=== PATIENT | female | born 1940 | race African-American/Black ===

== ENCOUNTER → 2018-01-01 | Outpatient (CLI) | payer OTHER | END | disposition home or self-care (01) | LOC: KCIC MAMMO 09:03 | DX: Z12.31 Encounter for screening mammogram for malignant neoplasm of breast (principal); Z13.820 Encounter for screening for osteoporosis; M85.88 Other specified disorders of bone density and structure, other site; Z78.0 Asymptomatic menopausal state | CPT/HCPCS: 77067; 77080 ==

== ENCOUNTER → 2019-01-08 | Outpatient (CLI) | payer OTHER ==
--- NOTE | 2019-01-10 09:31 | RAD ---
DATE: January 08, 2019 EXAM: DIGITAL SCREEN BILAT W/CAD HISTORY: Screening study. COMPARISON: January 01, 2018 This study was interpreted with the benefit of Computerized Aided Detection (CAD). FINDINGS: Breast Density: FATTY The breast parenchyma is primarily fatty replaced. Breast parenchyma level density A.. There are no dominant suspicious masses, suspicious microcalcifications or evidence of architectural distortion. Intramammary lymph node of the posterior lateral aspect of the left breast is seen. Small lymph node is seen overlying the right pectoralis muscle in the MLO projection. IMPRESSION: No mammographic indicators for malignancy. BI-RADS CATEGORY: 2 BENIGN FINDING RECOMMENDED FOLLOW-UP: 12M 12 MONTH FOLLOW-UP PQRS compliance statement: Patient information was entered into a reminder system with a target due date January 10, 2020 for the next mammogram. Mammography is a sensitive method for finding small breast cancers, but it does not detect them all and is not a substitute for careful clinical examination. A negative mammogram does not negate a clinically suspicious finding and should not result in delay in biopsying a clinically suspicious abnormality. "Our facility is accredited by the [employer] Mammography Program." The patient's breast density may affect the ability of mammography to detect breast cancer. There are 4 categories of breast density, A, B, C and D. Breast density A means that most of the breast tissue is replaced with adipose tissue and therefore is not dense. Breast density B means that the breast tissue is mildly dense and scattered. Breast density C means that the breast tissue is heterogeneously dense. Breast density D means that the breast tissue is very dense. Breast densities especially C and D may decrease the sensitivity of mammography to detect breast cancer. Therefore, the patient may benefit from 3-D breast mammography (3D breast tomography) as a part of their screening mammogram. Insurance may or may not pay for this additional imaging. The patient's breast density based on today's mammogram is category A.
== END | disposition home or self-care (01) ==
LOC: MAMMO 09:08
PROVIDERS: ATTEND Physician Assistant Surgical
DX: R92.8 Other abnormal and inconclusive findings on diagnostic imaging of breast (principal)
CPT/HCPCS: 77067

== ENCOUNTER → 2020-09-26 | Outpatient (CLI) | payer OTHER ==
[~2020-09-26] MED LIST: REGADENOSON 0.4 MG/5 ML DISP.SYRIN. IV ONE
--- NOTE | 2020-09-26 11:01 | CARD ---
MR#: [id number] Date of Study: 09/26/2020 Ordering Physician: MIKEY GASPAR, Referring Physician: MIKEY GASPAR, Tech: Chayito Gamajaclyn APPROVED REPORT EXAM: Two-dimensional and M-mode echocardiogram with Doppler and color Doppler. Other Information Quality : AverageHR: 55bpm INDICATION COPD abnormal EKG RISK FACTORS Hypertension Hyperlipidemia 2D DIMENSIONS RVDd3.7 (2.9-3.5cm)Left Atrium(2D)3.1 (1.6-4.0cm) IVSd1.2 (0.7-1.1cm)Aortic Root(2D)3.0 (2.0-3.7cm) LVDd4.7 (3.9-5.9cm)LVOT Diameter2.1 (1.8-2.4cm) PWd0.7 (0.7-1.1cm)LVDs2.9 (2.5-4.0cm) FS (%) 39.5 %SV72.7 ml LVEF(%)70.0 (>50%) Aortic Valve AoV Peak Delgado.133.4cm/sAoV VTI31.1cm AO Peak GR.7.1mmHgLVOT Peak Delgado.117.9cm/s LVOT VTI 30.87cmAO Mean GR.3mmHg JAY JAY (VMAX)2.71fz7IHK (VTI)3.43cm2 AI P 1/2 Jpvk516tr Mitral Valve MV E Kmivvedb66.4cm/sMV DECEL NAIR809zl MV A Knmlxrxb46.5cm/sMV ILA087wf E/A Ratio0.8MVA (PHT)1.93cm2 TDI E/Lateral E'9.5E/Medial E'11.2 Pulmonary Valve PV Peak Bkychqpm400.2cm/sPV Peak Grad.5mmHg Tricuspid Valve TR P. Lotqjtdr409sg/sRAP CNOSSZEF5gbPh TR Peak Gr.51uoJdRTSQ46nuXk Pulmonary Vein S1 Jdzrdrxi78.8cm/sD2 Qzfktnlw16.0cm/s PVa ztxonrar864dxmx LEFT VENTRICLE The left ventricle is normal size. There is borderline to mild concentric left ventricular hypertroph y. The left ventricular systolic function is normal and the ejection fraction is within normal range. The Ejection Fraction is 60-65%. There is normal LV segmental wall motion. Transmitral Doppler flow pattern is Grade I-abnormal relaxation pattern. RIGHT VENTRICLE The right ventricle is normal size. There is normal right ventricular wall thickness. The right ventr icular systolic function is normal. ATRIA The left atrium size is normal. The right atrium size is normal. The interatrial septum is intact wit h no evidence for an atrial septal defect or patent foramen ovale as noted on 2-D or Doppler imaging. AORTIC VALVE The aortic valve is normal in structure and function. Doppler and Color Flow revealed trace to mild a ortic regurgitation. Calculated aortic valve area is 2.96 cm2 with maximum pressure gradient of 8 mmH g and mean pressure gradient of 4 mmHg. There is no significant aortic valvular stenosis. MITRAL VALVE The mitral valve is normal in structure and function. There is no evidence of mitral valve prolapse. There is no mitral valve stenosis. Doppler and Color-flow revealed trace to mild mitral regurgitation . TRICUSPID VALVE The tricuspid valve is normal in structure and function. Doppler and Color Flow revealed trace tricus pid regurgitation with an estimated PAP of 31 mmHg. There is no tricuspid valve stenosis. PULMONIC VALVE The pulmonic valve is not well visualized. Doppler and Color Flow revealed trace pulmonic valvular re gurgitation. There is no pulmonic valvular stenosis. GREAT VESSELS The aortic root is normal in size. The ascending aorta is normal in size. The IVC is normal in size a nd collapses >50% with inspiration. PERICARDIAL EFFUSION There is no evidence of significant pericardial effusion. Critical Notification Critical Value: No <Conclusion> The left ventricular systolic function is normal and the ejection fraction is within normal range. Th e Ejection Fraction is 60-65%. There is normal LV segmental wall motion. Doppler and Color Flow revealed trace to mild aortic regurgitation. Signed by : Grady Silva, Electronically Approved : 09/26/2020 11:00:46
--- NOTE | 2020-09-27 08:02 | RAD ---
MR#: [id number] Date of Study: 09/26/2020 Ordering Physician: MIKEY GASPAR Referring Physician: YVONNE VILLEGAS Tech: RT Jacky (R) (N) APPROVED REPORT Test Type: Pharmacological Stress Nurse/Tech: Henok Gonsalves RN Test Indications: Atypical Chest Pain Cardiac History: HTN, See EMR. Medications: See EMR. Medical History: CA, COPD, See EMR. Resting ECG: SR Resting Heart Rate: 57 bpm Resting Blood Pressure: 199/86mmHg Pretest Chest Pain: No chest pain Nurse/Tech Notes Lungs crackly throughout, and heart tones regular. Consent: The procedure was explained to the patient in lay terms. Informed consent was witnessed. Saúl eout was entered into [employer]. History and Stress Test performed by JIGNESH Cevallos Pharm. Details Pharmacologic stress testing was performed using 0.4mg per 5ml of regadenoson given intravenously ove r 7-10 seconds. Stress Symptoms No chest pain or symptoms. POST EXERCISE Reason for Termination: Infusion complete Max HR: 87 bpm Max Blood Pressure: 139/72mmHg Blood Pressure response to exercise: Normal blood pressure response during stress. Heart Rate response to exercise: WNL Chest Pain: No. Arrhythmia: No. ST Change: No. INTERPRETATION Stress EKG Conclusion: Baseline EKG showed sinus rhythm. No ischemic changes at peak stress. No arr hythmias. Imaging Protocol IMAGE PROTOCOL: Rest Tc-99m/stress Tc-99m 1 day Rest: Stress: Viability: Radiopharm.Tc99m HhjsblnswGz12c Sestamibi Ghaw41fDi 33mCi Duration 15min. 15min. Img Date 09/26/2020 09/26/2020 Inj-Img Bswd09uoe. 60min. Rest Admin Site:IV - Left AntecubitalAdministrator:RT Jacky (R)(N) Stress Admin Site: IV - Left AntecubitalAdministrator: JIGNESH Cevallos STRESS DATA End Diast. Vol.60.0mlAv. Heart Rate81.0bpm End Syst. Vol.3.0mlCO Index BSA0.0L/min Myocardial Cski118.0gEject. Wsrvhyhy51.0% Stress Rates Pk. Fill Rate1.25EDV/secLVtime Pk. Fill 122.41msec Pk. Empty Rate5.55ESV/secLVtime Pk. Ezyqe244.03msec 1/3 Pk. Fill1.12EDV/sec Stress Scores Regional WT0.00Summed WT0.00 Regional WM0.00Summed WM0.00 Study quality was good. Left Ventricular size was Normal at Rest and Stress. Lung uptake was . Left Ventricular ejection fraction is >80%. The rest and stress images show normal perfusion, normal contraction and thickening. LV Perf. Quant 17 Seg. SSS0.00 17 Seg. SRS0.00 17 Seg. SDS0.00 Stress Defect Extent (% LAD)0.00Rest Defect Extent (% LAD)0.00Rev. Defect Extent (% LAD)0.00 Stress Defect Extent (% LCX) 0.00Rest Defect Extent (% LCX)0.00Rev. Defect Extent (% LCX)0.00 Stress Defect Extent (% RCA)0.00Rest Defect Extent (% RCA)0.00Rev. Defect Extent (% RCA)0.00 Stress Defect Extent (% JOANIE)0.00Rest Defect Extent (% JOANIE)0.00Rev. Defect Extent (% JOANIE)0.00 Conclusion 1. Regadenoson cardioisotope stress test did not show any evidence of ischemia or infarct. 2. Normal left ventricular systolic function with ejection fraction calculated at >80%. 3. Low risk for cardiac events. Signed by : Mikey Gaspar, Electronically Approved : 09/27/2020 08:01:35
== END ==
LOC: NM 08:04
PROVIDERS: ATTEND Internal Medicine Cardiovascular Disease
DX: I08.0 Rheumatic disorders of both mitral and aortic valves (principal); I11.9 Hypertensive heart disease without heart failure; J44.9 Chronic obstructive pulmonary disease, unspecified
CPT/HCPCS: 78452; 93017; 93306; A9500; J2785

== ENCOUNTER 2020-10-15 08:31 | Emergency (ER) | payer MEDICARE, OTHER ==
[~2020-10-15] VITALS: Ht 162.6 cm; Wt 67.2 kg
[2020-10-15 09:07] LABS: BASO % 1 % (0-3); EOS # 0.3 x10^3/uL (0.0-0.7); EOS % 5 % (0-3); HEMATOCRIT 39.5 % (36.0-47.0); HEMOGLOBIN 13.1 g/dL (12.0-15.5); LYMPH # 0.8 x10^3/uL (1.0-4.8); LYMPH % 13 % (24-48); MEAN CORPUSCULAR HEMOGLOBIN 27 pg (25-35); MEAN CORPUSCULAR HGB CONC 33 g/dL (31-37); MEAN CORPUSCULAR VOLUME 81 fL (79-100); MONO # 0.5 x10^3/uL (0.0-1.1); MONO % 8 % (0-9); NEUT # 4.4 x10^3/uL (1.8-7.7); NEUT % 73 % (31-73); PLATELET COUNT 212 x10^3/uL (140-400); RED BLOOD COUNT 4.87 x10^6/uL (3.50-5.40); RED CELL DISTRIBUTION WIDTH 15.1 % (11.5-14.5); WHITE BLOOD COUNT 6.1 x10^3/uL (4.0-11.0)
--- NOTE | 2020-10-15 09:16 | PHYS DOC ---
Past Medical History Past Medical History: COPD, High Cholesterol, Hypertension Past Surgical History: Hysterectomy, Other Additional Past Surgical Histo: HERNIA REPAIR Smoking Status: Never Smoker Alcohol Use: None General Adult EDM: Chief Complaint: MECHANICAL FALL HPI: HPI: 80-year-old female past medical history of hypertension, hyperlipidemia and COPD, presents the ED with complaints of right shoulder pain and right temporal headache that started after patient fell around 6 PM last night. Patient states she tripped on her shoes and landed forward on the right side of her head, landing on concrete outside. On ASA-no blood thinners or AC. Denies any LOC or recent head trauma, no h/o ICH. States she did not come to the ER last night because she did not have a ride. Patient reports her right shoulder pain has been there for more than a few days and denies any injury prior to the pain starting. Denies any preceding symptoms-no associated chest pain, hemoptysis, fever, headache, neck stiffness, dizziness, dyspnea, lightheadedness, weakness or focal neurologic deficits. On re-evaluation- pt with redness to left distal forearm over ulna with ttp. Cannot recall and skin break. Unknown last tetanus. Review of Systems: Review of Systems: Constitutional: Denies fever or chills. [] Eyes: Denies change in visual acuity. [] HENT: Denies nasal congestion or sore throat. [] Respiratory: Denies cough or shortness of breath. [] Cardiovascular: Denies chest pain or edema. [] GI: Denies abdominal pain, nausea, vomiting, bloody stools or diarrhea. [] : Denies dysuria or hematuria Musculoskeletal: Denies back pain or joint swelling Integument: Denies rash or diaphoresis Neurologic: Denies neck pain or stiffness, focal weakness or sensory changes. [] Endocrine: Denies polyuria or polydipsia. [] Lymphatic: Denies swollen glands. [] Psychiatric: Denies depression or anxiety. [] Heart Score: Risk Factors: Risk Factors: DM, Current or recent (<one month) smoker, HTN, HLP, family history of CAD, obesity. Risk Scores: Score 0 - 3: 2.5% MACE over next 6 weeks - Discharge Home Score 4 - 6: 20.3% MACE over next 6 weeks - Admit for Clinical Observation Score 7 - 10: 72.7% MACE over next 6 weeks - Early Invasive Strategies Allergies: Allergies: Allergies Coded Allergies Type Severity Reaction Last Updated Verified No Known Drug Allergies 09/26/20 No Physical Exam: PE: Constitutional: Well developed, well nourished, no acute distress, non-toxic appearance, steady gait-ambulates without assistance HENT: Normocephalic, atraumatic, no signs of oral trauma, no septal hematoma, no facial bony tenderness Eyes: PERRLA, EOMI, conjunctiva normal, no discharge, no infraorbital anesthesia Neck: Normal range of motion, supple, Cardiovascular: S1/2 present, regular rhythm Lungs & Thorax: Speaking in full sentences, bilateral equal chest rise, no tachypnea or increased work of breathing Abdomen: soft, no tenderness, no hip tenderness Skin: Warm, dry, no erythema, 3x3 cm erythema over distal left ulna with increased warmth, no fluctuance, left index fever with dorsal erythema and swelling over proximal phalange, no pain with passive extension, uniform swelling, no flexion posture and no percussion tenderness over entire flexor tendon sheath. Back: No midline spinal tenderness, no CVA tenderness. [] Extremities: pain over right shoulder joint-not red/hot, no gross deformity, no cyanosis, no edema Neurologic: Alert and oriented X 3, normal motor function, normal sensory function, no focal deficits noted. [] Psychologic: Affect normal, judgement normal, mood normal. [] Nexus C-spine criteria are negative: There is no post midline tenderness, the patient is not intoxicated, there is a normal level of alertness, there are no focal neurologic deficits and there are no distracting injuries. Current Patient Data: Vital Signs: Vital Signs Date Time Temp Pulse Resp B/P (MAP) Pulse Ox O2 Delivery O2 Flow Rate FiO2 10/15/20 08:41 99.2 92 20 168/87 (114) 94 Room Air 99.2 EKG: EKG: Sinus rhythm at 90 bpm, no axis deviation, normal intervals, no T wave inversions, no ST elevations or ST depressions Radiology/Procedures: Radiology/Procedures: IMAGING REPORT Signed PATIENT: PRATIBHA HADDAD ACCOUNT: [id number] : 1940 LOCATION: ER AGE: 80 SEX: F EXAM STATUS: REG ER ORD. PHYSICIAN: MARCOS STEVENSON DO REASON: fall on thinners PROCEDURE: CT HEAD AND CERVICAL SPINE WO EXAM: CT Head without IV contrast INDICATION: Reason: fall on thinners / Spl. Instructions: / History: TECHNIQUE: Multi-detector row CT images were obtained of the head without the use of IV contrast. All CT scans performed at this facility utilize dose optimization techniques as appropriate to the exam, including the following: Automated exposure control and adjustment of the mA and/or KV according to patient size (this includes techniques or standardized protocols for targeted exams where dose is indication/reason for exam). COMPARISON: None FINDINGS: BRAIN PARENCHYMA: No evidence of acute intraparenchymal hemorrhage or infarct. No abnormal parenchymal density or mass. VENTRICLES & EXTRA-AXIAL SPACES: Ventricles are within normal limits. Basilar cisterns are patent. No pathologic extra-axial fluid collection or mass. ORBITS: Orbital contents are unremarkable. SINUSES: Visualized paranasal sinuses and mastoid air cells are clear. OSSEOUS & SOFT TISSUES: Calvarium and skull base are intact. IMPRESSION: No acute intracranial pathology. EXAM: CT Cervical Spine with and without IV contrast INDICATION: Reason: fall on thinners / Spl. Instructions: / History: TECHNIQUE: Multi-detector row CT images were obtained through the cervical spine with and without the use of IV contrast. Post-processing sagittal and coronal reconstructed images were obtained for interpretation. All CT scans performed at this facility utilize dose optimization techniques as appropriate t o the exam, including the following: Automated exposure control and adjustment of the mA and/or KV according to patient size (this includes techniques or standardized protocols for targeted exams where dose is indication/reason for exam). IV CONTRAST: Administered COMPARISON: None FINDINGS: CRANIOCERVICAL JUNCTION: Unremarkable. ALIGNMENT: Alignment is within normal limits. OSSEOUS: No evidence of fracture or bone destruction. DISC SPACES: Mild disc degenerative changes with narrowing at the C3-C4 and C4- C5 posterior discs, associated with mild uncovertebral hypertrophy. FACET JOINTS: Unremarkable. SPINAL CANAL: Unremarkable. NEUROFORAMINA: Unremarkable. SOFT TISSUES: Unremarkable. IMPRESSION: No acute traumatic findings in the cervical spine. EXAM: XR CHEST 1V INDICATION: Reason: fall on thinners / Spl. Instructions: / History: . TECHNIQUE: Single view COMPARISON: None FINDINGS: IMAGING REPORT Signed PATIENT: PRATIBHA HADDAD ACCOUNT: [id number] : 1940 LOCATION: ER AGE: 80 SEX: F EXAM STATUS: REG ER ORD. PHYSICIAN: MARCOS STEVENSON DO REASON: rash 2nd finger/index PROCEDURE: FINGER(S) LEFT Indications: Pain with rash. Three-view left wrist study: No acute fracture or dislocation or lytic process evident. There is severe primary degenerative osteoarthritis of the first carp ometacarpal joint with prominent lateral spurring. No erosive arthropathy is evident. IMPRESSION: No acute osseous abnormality. 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 3 view study of the second digit of the left hand: No acute fracture or dislocation or lytic process is seen. The distal soft tissues are cut off in the lateral view. No radiopaque foreign body is evident. No erosive arthropathy is seen. IMPRESSION: No acute osseous abnormality. The distal soft tissues of the second digit of the left hand are cut off in the lateral view. A repeat view should be performed at no extra cost to the patient if there is clinical concern for this area. Electronically signed by: Neymar Torres MD (10/15/2020 10:00 AM) [id number] DICTATED and SIGNED BY: NEYMAR TORRES MD DATE: 10/15/20 [id number] ADDENDUM #1 ADDENDUM: In addition to the head, C-spine and chest, the right shoulder was also imaged and is included as follows: PROCEDURE: XR CHEST 1V, CT HEAD AND C-SPINE WO, XR SHOULDER_RIGHT 2+ VIEWS STUDY DATE: 10/15/2020 CLINICAL INDICATION / HISTORY: Reason: fall on thinners / Spl. Instructions: / History: . TECHNIQUE: AP internal and external rotation views with a Y- view were obtained. COMPARISON: None FINDINGS: No fracture, dislocation or bone destruction is identified. There are moderate degenerative changes at the right AC joint. No calcifications are seen in relation to the rotator cuff insertion. IMPRESSION: No acute bony abnormality is detected. Electronically signed by: Palak King MD (10/15/2020 10:25 AM) [id number] Course & Med Decision Making: Course & Med Decision Making Pertinent Labs and Imaging studies reviewed. (See chart for details) Concern for accidental mechanical fall, CT imaging negative for any acute pro cess. X-rays show degenerative changes of right AC joint. Labs unremarkable - elevation of creatinine 1.1. Urinalysis with no infection. Suspect OA right shoulder. Will tx with keflex for cellulitis of left distal forearm and index finger. Will discharge home with strict ED return precautions were given for neurologic deficits, severe headache, nausea, vomiting, fever, neck stiffness or repeat head injury.. Encouraged urgent outpatient follow-up with PMD. Life- threatening processes were considered but are low suspicion at this time, given history, physical exam and ED workup. Pt was educated on all prescription medications and adverse effects. All patient's questions were answered and pt was stable at time of discharge. Life/limb-threatening differential includes but is not limited to, intracranial hemorrhage, diffuse axonal injury, spinal cord syndrome, unstable cervical fract ure or SCIWORA, fractures or joint dislocations, neurovascular injuries, organ injury or laceration, pneumothorax, pneumoperitoneum, pericardial tamponade, unstable pelvic fracture, compartment syndrome, flail chest or respiratory distress, flexor tenosynovitis, burn injury or asphyxiation I spoken with the patient and her caregivers. I explained the patient's condition, diagnoses and treatment plan based on the information available to me at this time. I have answered the patient and her caregiver's questions and addressed any concerns. The patient and her caregivers have a good understanding of patient's diagnosis, condition and treatment plan as can be expected at this point. Vital signs have been stable. Patient's condition is stable and appropriate for discharge from the emergency department. Patient will pursue further outpatient evaluation with primary care physician or other designated or consulting physician as outlined in the discharge instructions. The patient and/or caregivers are agreeable to this plan of care and follow-up instructions have been explained in detail. The patient and/or caregivers have received these instructions in written form and have expressed an understanding of the discharge instructions. The patient and/or caregivers are aware that any significant change of condition or worsening of symptoms should prompt immediate return to this or the closest emergency department or call to 911. Linda Disclaimer: Linda Disclaimer: This electronic medical record was generated, in whole or in part, using a voice recognition dictation system. Departure Departure Impression: Primary Impression: Fall Additional Impressions: Head injury Shoulder pain, right Cellulitis of left wrist Need for Tdap vaccination Cellulitis of index finger Disposition: 01 DC HOME SELF CARE/HOMELESS Condition: STABLE Referrals: PO BE MD (PCP) in 2-5 days for re-evaluation Patient Instructions: Cellulitis, Fall Prevention and Home Safety, Shoulder Pain Additional Instructions: EMERGENCY DEPARTMENT GENERAL DISCHARGE INSTRUCTIONS Thank you for coming to [facility] Emergency Department (ED) today and trusting us with you care. We trust that you had a positive experience in our Emergency Department. If you wish to speak to the department management, you may call the Director at [phone]. YOUR FOLLOW UP INSTRUCTIONS ARE FOLLOWS: 1. Do you have a private Doctor? If you do not have a private doctor, please ask for a resource list of physicians or clinics that may be able to assist you with follow up care. 2. The Emergency Physicain has interpreted your x-rays. The X-Ray specialist will also review them. If there is a change in the findings, you will be notified in 48 hours when at all possible. 3. A lab test or culture has been done, your results will be reviewed and you will be notified if you need a change in treatment. ADDITIONAL INSTRUCTIONS AND INFORMATION: 1. Your care today has been supervised by a physician who is specially trained in emergency care. Many problems require more than one evaluation for a complete diagnosis and treatment. We recommend that you schedule your follow up appointment as recommended to ensure complete treatment of you illness or injury. If you are unable to obtain follow up care and continue to have a problem, or if your condition worsens, we recommend that you return to the ED. 2. We are not able to safely determine your condition over the phone nor are we able to give sound medical advice over the phone. For these safety reasons, if you call for medical advice we will ask you to come to the ED for further evaluation. 3. If you have any questions regarding these discharge instructions please call the ED at [phone]. SAFETY INFORMATION: In the interest of safety, wellness, and injury prevention; we encourage you to wear your sealbelt, if you smoke; quite smoking, and we encourage family to use a protective helmet for bicycling and other sporting events that present an increased risk for head injury. IF YOUR SYMPTOMS WORSEN OR NEW SYMPTOMS DEVELOP, OR YOU HAVE CONCERNS ABOUT YOUR CONDITION; OR IF YOUR CONDITION WORSENS WHILE YOU ARE WAITING FOR YOUR FOLLOW UP APPOINTMENT; EITHER CONTACT YOUR PRIMARY CARE DOCTOR, THE PHYSICIAN WHOSE NAME AND NUMBER YOU WERE GIVEN, OR RETURN TO THE ED IMMEDIATELY. Scripts Sulfamethoxazole/Trimethoprim (BACTRIM DS TABLET) 1 Each Tablet 1 TAB PO BID for infection for 10 Days, #20 TAB Prov: MARCOS STEVENSON DO 10/15/20 Cephalexin (CEPHALEXIN) 500 Mg Capsule 1 CAP PO QID for 10 Days, #40 CAP Prov: MARCOS STEVENSON DO 10/15/20 MARCOS STEVENSON DO Oct 15, 2020 09:16
[2020-10-15 09:26] LABS: CALCIUM 9.2 mg/dL (8.5-10.1); CREATININE 1.1 mg/dL (0.6-1.0); POTASSIUM 3.5 mmol/L (3.5-5.1)
[2020-10-15] MEDS ORDERED: DIPH,PERTUSS(ACELL),TET VAC/PF 0.5 ML SYRINGE. VAX IM ONE (09:30)
[2020-10-15 09:32] LABS: ALBUMIN 3.6 g/dL (3.4-5.0); ALBUMIN/GLOBULIN RATIO 0.8 (1.0-1.7); TOTAL BILIRUBIN 0.7 mg/dL (0.2-1.0)
--- NOTE | 2020-10-15 09:49 | RAD ---
ADDENDUM #1 ADDENDUM: In addition to the head, C-spine and chest, the right shoulder was also imaged and is included as fol lows: PROCEDURE: XR CHEST 1V, CT HEAD AND C-SPINE WO, XR SHOULDER_RIGHT 2+ VIEWS STUDY DATE: 10/15/2020 CLINICAL INDICATION / HISTORY: Reason: fall on thinners / Spl. Instructions: / History: . TECHNIQUE: AP internal and external rotation views with a Y- view were obtained. COMPARISON: None FINDINGS: No fracture, dislocation or bone destruction is identified. There are moderate degenerativ e changes at the right AC joint. No calcifications are seen in relation to the rotator cuff insertion . IMPRESSION: No acute bony abnormality is detected. Electronically signed by: Palak King MD (10/15/2020 10:25 AM) [id number] ORIGINAL REPORT EXAM: CT Head without IV contrast INDICATION: Reason: fall on thinners / Spl. Instructions: / History: TECHNIQUE: Multi-detector row CT images were obtained of the head without the use of IV contrast. All CT scans performed at this facility utilize dose optimization techniques as appropriate to the exam, including the following: Automated exposure control and adjustment of the mA and/or KV according to patient size (this includes techniques or standardized protocols for targeted exams where dose is ind ication/reason for exam). COMPARISON: None FINDINGS: BRAIN PARENCHYMA: No evidence of acute intraparenchymal hemorrhage or infarct. No abnormal parenchyma l density or mass. VENTRICLES & EXTRA-AXIAL SPACES: Ventricles are within normal limits. Basilar cisterns are patent. N o pathologic extra-axial fluid collection or mass. ORBITS: Orbital contents are unremarkable. SINUSES: Visualized paranasal sinuses and mastoid air cells are clear. OSSEOUS & SOFT TISSUES: Calvarium and skull base are intact. IMPRESSION: No acute intracranial pathology. EXAM: CT Cervical Spine with and without IV contrast INDICATION: Reason: fall on thinners / Spl. Instructions: / History: TECHNIQUE: Multi-detector row CT images were obtained through the cervical spine with and without th e use of IV contrast. Post-processing sagittal and coronal reconstructed images were obtained for int erpretation. All CT scans performed at this facility utilize dose optimization techniques as appropri ate to the exam, including the following: Automated exposure control and adjustment of the mA and/or KV according to patient size (this includes techniques or standardized protocols for targeted exams w here dose is indication/reason for exam). IV CONTRAST: Administered COMPARISON: None FINDINGS: CRANIOCERVICAL JUNCTION: Unremarkable. ALIGNMENT: Alignment is within normal limits. OSSEOUS: No evidence of fracture or bone destruction. DISC SPACES: Mild disc degenerative changes with narrowing at the C3-C4 and C4-C5 posterior discs, a ssociated with mild uncovertebral hypertrophy. FACET JOINTS: Unremarkable. SPINAL CANAL: Unremarkable. NEUROFORAMINA: Unremarkable. SOFT TISSUES: Unremarkable. IMPRESSION: No acute traumatic findings in the cervical spine. EXAM: XR CHEST 1V INDICATION: Reason: fall on thinners / Spl. Instructions: / History: . TECHNIQUE: Single view COMPARISON: None FINDINGS: The heart size is normal. The great vessels appear unremarkable. There is no hilar or mediastinal mass. Stable mild prominence of the pulmonary interstitium with peribronchial thickening. There is no pleural effusion or pneumothorax. There are no significant osseous abnormalities. IMPRESSION: Stable mild peribronchial thickening, likely reflecting underlying chronic lung disease. No acute tra umatic findings in the chest. Electronically signed by: Palak King MD (10/15/2020 9:42 AM) [id number]
--- NOTE | 2020-10-15 10:02 | RAD ---
Indications: Pain with rash. Three-view left wrist study: No acute fracture or dislocation or lytic process evident. There is otis re primary degenerative osteoarthritis of the first carpometacarpal joint with prominent lateral spur ring. No erosive arthropathy is evident. IMPRESSION: No acute osseous abnormality. 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 3 view study of the second digit of the left hand: No acute fracture or dislocation or lytic process is seen. The distal soft tissues are cut off in the lateral view. No radiopaque foreign body is evide nt. No erosive arthropathy is seen. IMPRESSION: No acute osseous abnormality. The distal soft tissues of the second digit of the left villatoro d are cut off in the lateral view. A repeat view should be performed at no extra cost to the patient if there is clinical concern for this area. Electronically signed by: Vazquez Torres MD (10/15/2020 10:00 AM) [id number]
[2020-10-15 12:20] LABS: BILIRUBIN,URINE NEGATIVE (NEG); CLARITY,URINE CLEAR; COLOR,URINE YELLOW; NITRITE,URINE NEGATIVE (NEG); PROTEIN,URINE NEGATIVE (NEG-TRACE); UROBILINOGEN,URINE 0.2 mg/dL (0.2 mg/dL)
[2020-10-15 12:24] LABS: BARBITURATES NEG (NEG); BENZODIAZEPINES NEG (NEG); CANNABINOIDS NEG (NEG); COCAINE NEG (NEG); METHADONE NEG (NEG); OPIATES NEG (NEG); PHENCYCLIDINE NEG (NEG)
[2020-10-15 12:26] LABS: AMPHETAMINE/METHAMPHETAMINE NEG (NEG)
[2020-10-15 12:30] LABS: BACTERIA,URINE 0 /HPF (0-FEW); RBC,URINE 0 /HPF (0-2); WBC,URINE RARE /HPF (0-4)
[2020-10-15 12:34] VITALS: BP 147/81
[2020-10-15] MEDS ORDERED: CEPH500C PO (12:50)
[2020-10-15] MEDS ORDERED: SULF1TAB24 PO (12:51)
--- NOTE | 2020-10-16 10:43 | EKG ---
[facility] [address] [place] [address] Test Date: 2020-10-15 Test Time: 08:53:07 Pat Name: PRATIBHA HADDAD Department: Room: Gender: F Fundraiser: : 1940 Requested By: MARCOS STEVENSON Order Number: [id number] Reading MD: Measurements Intervals [place] Rate: 90 P: 51 MT: 178 QRS: 32 QRSD: 92 T: 39 QT: 364 QTc: 449 Interpretive Statements SINUS RHYTHM QRS(T) CONTOUR ABNORMALITY CONSISTENT WITH SEPTAL INFARCT PROBABLY OLD ABNORMAL ECG RI6.02 No previous ECG available for comparison
== END 2020-10-15 12:59 | disposition home or self-care (01) ==
LOC: ER 08:31
DX: S09.90XA Unspecified injury of head, initial encounter (principal); M25.511 Pain in right shoulder; L03.114 Cellulitis of left upper limb; L03.012 Cellulitis of left finger; R51.9 Headache, unspecified; J44.9 Chronic obstructive pulmonary disease, unspecified; E78.00 Pure hypercholesterolemia, unspecified; I10 Essential (primary) hypertension; W01.0XXA Fall on same level from slipping, tripping and stumbling without subsequent striking against object, initial encounter; Y93.89 Activity, other specified; Y92.89 Other specified places as the place of occurrence of the external cause; Y99.8 Other external cause status
CPT/HCPCS: 36415; 70450; 71045; 72125; 73030; 73110; 73140; 80053; 80307; 81001; 85025; 85610; 85730; 87086; 90471; 90715; 93005; 99284; G0480; 99285-25

== ENCOUNTER 2020-10-18 07:32 | Observation (INO) | payer MEDICARE ==
[~2020-10-18] VITALS: Ht 162.6 cm; Wt 67.0 kg
[~2020-10-18 07:32] MED LIST changes: +CEPH500C PO; -REGADENOSON 0.4 MG/5 ML DISP.SYRIN. IV ONE; +SULF1TAB24 PO
--- NOTE | 2020-10-18 08:32 | RAD ---
Right knee 3 views. HISTORY: Fell with right knee and hip pain Right knee 3 views were taken of the right knee. There is mild arthritis with mild hypertrophic changes. There i s no fracture or joint effusion or other acute osseous abnormality. IMPRESSION: 1. Mild arthritis right knee. 2. No acute fracture. Electronically signed by: Rm Velasquez MD (10/18/2020 8:30 AM) [id number]
--- NOTE | 2020-10-18 08:35 | RAD ---
Right hip 2 views with one view pelvis. HISTORY: Pain after a fall Single view was taken of the pelvis. There is no fracture or acute osseous abnormality. Left hip appe ars unremarkable. AP and lateral views were taken of the right hip. There is osteoarthritis at the hip with mild spurri ng on the femoral head. There is no acute hip fracture. IMPRESSION: 1. No pelvic fracture noted. 2. Mild arthritis right hip. 3. No acute right hip fracture. Electronically signed by: Rm Velasquez MD (10/18/2020 8:32 AM) [id number]
--- NOTE | 2020-10-18 08:40 | PHYS DOC ---
Past Medical History Past Medical History: COPD, High Cholesterol, Hypertension Past Surgical History: Hysterectomy, Other Additional Past Surgical Histo: HERNIA REPAIR Smoking Status: Never Smoker Alcohol Use: None General Adult EDM: Chief Complaint: HIP PAIN HPI: HPI: Patient is a 80 year old female who presented to ER for evaluation of right knee pain and right hip pain. Patient says she fell on her right knee 3 days ago, she also hit her head and her right wrist on the floor. Patient was evaluated here 3 days ago, had CT scan of her C-spine, her head and her x-rays of her wrist did not show any acute problem. Patient says she did not have x- ray of right her knee or her pelvic, she has had pain in her right hip ever since. Patient says she could not walk because of pain. Review of Systems: Review of Systems: Constitutional: Denies fever or chills. [] Eyes: Denies change in visual acuity. [] HENT: Denies nasal congestion or sore throat. [] Respiratory: Denies cough or shortness of breath. [] Cardiovascular: Denies chest pain or edema. [] GI: Denies abdominal pain, nausea, vomiting, bloody stools or diarrhea. [] : Denies dysuria. [] Musculoskeletal: Denies back pain , positive for right hip pain, right knee pain Integument: Denies rash. [] Neurologic: Denies headache, focal weakness or sensory changes. [] Endocrine: Denies polyuria or polydipsia. [] Lymphatic: Denies swollen glands. [] Psychiatric: Denies depression or anxiety. [] Heart Score: Risk Factors: Risk Factors: DM, Current or recent (<one month) smoker, HTN, HLP, family history of CAD, obesity. Risk Scores: Score 0 - 3: 2.5% MACE over next 6 weeks - Discharge Home Score 4 - 6: 20.3% MACE over next 6 weeks - Admit for Clinical Observation Score 7 - 10: 72.7% MACE over next 6 weeks - Early Invasive Strategies Allergies: Allergies: Allergies Coded Allergies Type Severity Reaction Last Updated Verified No Known Drug Allergies 09/26/20 No Physical Exam: PE: Constitutional: Well developed, well nourished, no acute distress, non-toxic appearance. [] HENT: Normocephalic, atraumatic, bilateral external ears normal, oropharynx moist, no oral exudates, nose normal. [] Eyes: PERRLA, EOMI, conjunctiva normal, no discharge. [] Neck: Normal range of motion, no tenderness, supple, no stridor. [] Cardiovascular:Heart rate regular rhythm, no murmur [] Lungs & Thorax: Bilateral breath sounds clear to auscultation [] Abdomen: Bowel sounds normal, soft, no tenderness, no masses, no pulsatile masses. [] Skin: Warm, dry, no erythema, no rash. [] Back: No tenderness, no CVA tenderness. [] Extremities: right anterior knee is tender to palpation with superficial skin contusion. Right hip is tender to palpation. Neurologic: Alert and oriented X 3, normal motor function, normal sensory function, no focal deficits noted. [] Psychologic: Affect normal, judgement normal, mood normal. [] Current Patient Data: Vital Signs: Vital Signs Date Time Temp Pulse Resp B/P (MAP) Pulse Ox O2 Delivery O2 Flow Rate FiO2 10/18/20 07:42 98.1 78 18 178/83 (114) 96 Room Air 98.1 EKG: EKG: [] Radiology/Procedures: Radiology/Procedures: [][address] [id number] IMAGING REPORT Signed PATIENT: PRATIBHA HADDAD ACCOUNT: [id number] : 1940 LOCATION: ER AGE: 80 SEX: F EXAM STATUS: REG ER ORD. PHYSICIAN: MARIBEL MAO DO REASON: FELL 10/14, RIGHT KNEE AND RIGHT HIP PAIN PROCEDURE: KNEE RIGHT 3V Right knee 3 views. HISTORY: Fell with right knee and hip pain Right knee 3 views were taken of the right knee. There is mild arthritis with mild hypertrophic changes. There is no fracture or joint effusion or other acute osseous abnormality. IMPRESSION: 1. Mild arthritis right knee. 2. No acute fracture. Electronically signed by: Rm Velasquez MD (10/18/2020 8:30 AM) [id number] DICTATED and SIGNED BY: RM VELASQUEZ MD DATE: 10/18/20 [id number] 0 [place] [id number] IMAGING REPORT Signed PATIENT: PRATIBHA HADDAD ACCOUNT: [id number] : 1940 LOCATION: ER AGE: 80 SEX: F EXAM STATUS: REG ER ORD. PHYSICIAN: MARIBEL MAO DO REASON: FELL 10/14, RIGHT KNEE AND RIGHT HIP PAIN PROCEDURE: HIP RIGHT 2V WITH PELVIS Right hip 2 views with one view pelvis. HISTORY: Pain after a fall Single view was taken of the pelvis. There is no fracture or acute osseous abnormality. Left hip appears unremarkable. AP and lateral views were taken of the right hip. There is osteoarthritis at the hip with mild spurring on the femoral head. There is no acute hip fracture. IMPRESSION: 1. No pelvic fracture noted. 2. Mild arthritis right hip. 3. No acute right hip fracture. Electronically signed by: Rm Velasquez MD (10/18/2020 8:32 AM) [id number] DICTATED and SIGNED BY: RM VELASQUEZ MD DATE: 10/18/20 [id number] [facility] [address] [place] [address] IMAGING REPORT Signed PATIENT: PRATIBHA HADDAD ACCOUNT: [id number] : 1940 LOCATION: ER AGE: 80 SEX: F EXAM STATUS: REG ER ORD. PHYSICIAN: MARIBEL MAO DO REASON: FELL 3 DAYS AGO, RIGHT HIP PAIN, NOT ABLE TO WALK DUE TO PAIN PROCEDURE: CT PELVIS WO CONTRAST EXAM: CT Pelvis without IV contrast INDICATION: Reason: FELL 3 DAYS AGO, RIGHT HIP PAIN, NOT ABLE TO WALK DUE TO PAIN / Spl. Instructions: / History: TECHNIQUE: Multi-detector row images were acquired from the iliac crest through the lesser trochanters without the use of IV contrast. Sagittal and coronal images were acquired from the transaxial data. All CT scans performed at this facility utilize dose optimization techniques as appropriate to the exam, including the following: Automated exposure control and adjustment of the mA and/or KV according to patient size (this includes techniques or standardized protocols for targeted exams where dose is indication/reason for exam). ORAL CONTRAST: None COMPARISON: Pelvis and right hip x-rays of 10/18/2020 FINDINGS: The absence of IV contrast limits evaluation of soft tissue pathology. OSSEOUS:No evidence of fracture or bone destruction. Partial sacralization of the left L5 transverse process., Assuming 5 lumbar type vertebrae. BLADDER: Unremarkable REPRODUCTIVE ORGANS: Surgically absent. BOWEL: Visualized bowel is unremarkable. MESENTERY/PERITONEUM/RETROPERITONEUM: Unremarkable VASCULAR: Unremarkable LYMPH NODES: No adenopathy SOFT TISSUES: Unremarkable. IMPRESSION: No CT evidence of an acute fracture or hip dislocation. Electronically signed by: Moriah King MD (10/18/2020 11:37 AM) [id number] DICTATED and SIGNED BY: MORIAH KING MD DATE: 10/18/20 [id number] 0 Course & Med Decision Making: Course & Med Decision Making Pertinent Labs and Imaging studies reviewed. (See chart for details) Patient is a 80-year-old female who presented to ER for evaluation of right knee pain and right hip pain after she fell 3 days ago. Patient has x-ray of her r ight hip and her right knee did not show any fracture or dislocation. It showed that she has arthritis in her right hip. Attempt to get patient up to walk around but she was in so much pain, could not put much weight on her right hip. CT scan of her cervix did not show any fracture or dislocation of her hip. Due to her pain patient will be admitted to hospital. If she continues have pain she may need an MRI of her right hip to rule out fracture. Discussed with Dr. Smith who agreed to admit the patient. Linda Disclaimer: Linda Disclaimer: This electronic medical record was generated, in whole or in part, using a voice recognition dictation system. Departure Departure Impression: Primary Impression: Hip pain, right Disposition: ADMITTED INPT THIS HOSP Admitting Physician: NAYAN (DR. SMITH) Condition: STABLE Referrals: ROMAINE ALICEA D.O. (PCP) MARIBEL MAO DO Oct 18, 2020 08:39
[2020-10-18] MEDS ORDERED: HYDROcodone/APAP 5/325MG 1 TAB TABLET PO ONE (09:00)
--- NOTE | 2020-10-18 11:40 | RAD ---
EXAM: CT Pelvis without IV contrast INDICATION: Reason: FELL 3 DAYS AGO, RIGHT HIP PAIN, NOT ABLE TO WALK DUE TO PAIN / Spl. Instructions : / History: TECHNIQUE: Multi-detector row images were acquired from the iliac crest through the lesser trochanter s without the use of IV contrast. Sagittal and coronal images were acquired from the transaxial data. All CT scans performed at this facility utilize dose optimization techniques as appropriate to the e xam, including the following: Automated exposure control and adjustment of the mA and/or KV according to patient size (this includes techniques or standardized protocols for targeted exams where dose is indication/reason for exam). ORAL CONTRAST: None COMPARISON: Pelvis and right hip x-rays of 10/18/2020 FINDINGS: The absence of IV contrast limits evaluation of soft tissue pathology. OSSEOUS:No evidence of fracture or bone destruction. Partial sacralization of the left L5 transverse process., Assuming 5 lumbar type vertebrae. BLADDER: Unremarkable REPRODUCTIVE ORGANS: Surgically absent. BOWEL: Visualized bowel is unremarkable. MESENTERY/PERITONEUM/RETROPERITONEUM: Unremarkable VASCULAR: Unremarkable LYMPH NODES: No adenopathy SOFT TISSUES: Unremarkable. IMPRESSION: No CT evidence of an acute fracture or hip dislocation. Electronically signed by: Palak King MD (10/18/2020 11:37 AM) [id number]
[2020-10-18 12:45] VITALS: BP 152/76
[2020-10-18] MEDS: HYDROcodone/APAP 5/325MG 1 TAB TABLET PO PRN ×2 (13:07→16:55)
[2020-10-18] MEDS ORDERED: LOSA100T14 PO (14:01)
[2020-10-18] MEDS ORDERED: AMLO-186 PO (14:01)
[2020-10-18] MEDS ORDERED: POTA10TA12 PO (14:01)
[2020-10-18] MEDS ORDERED: HYDR50TA9 PO (14:02)
[2020-10-18] MEDS ORDERED: ATOR40TA59 PO (14:02)
[2020-10-18] MEDS ORDERED: BUDE10.22 IH (14:03)
--- NOTE | 2020-10-18 14:08 | HP ---
ADMIT DATE: 10/18/2020 CHIEF COMPLAINT: Fall with knee pain. Wrist pain, right hip pain. HISTORY OF PRESENT ILLNESS: The patient is a pleasant elderly female who fell. She struck her head. She also struck her right wrist and right hip. Rates her pain at 7/10. It occurred actually 3 days ago. She tried increasing her home meds, but that did not work. She was actually evaluated in the ER 3 days ago and her workup was negative, so she was sent home, but she states she just cannot walk. I discussed the case with ER physician. We are going to admit the patient and do some therapy and give her some pain meds, do some more imaging, suspect she might need to go to prison. PAST MEDICAL HISTORY: Recent fall and she also has COPD, hypertension, hyperlipidemia, hysterectomy, and hernia repair. ALLERGIES: None. FAMILY HISTORY: Diabetes. SOCIAL HISTORY: She does not drink, smoke or take drugs. MEDICATIONS: Reviewed, please refer to the MRAD. REVIEW OF SYSTEMS: GENERAL: No history of weight change, weakness or fevers. SKIN: No bruising, hair changes or rashes. EYES: No blurred, double or loss of vision. NOSE AND THROAT: No history of nosebleeds, hoarseness or sore throat. HEART: No history of palpitations, chest pain or shortness of breath on exertion. LUNGS: Denies cough, hemoptysis, wheezing or shortness of breath. GASTROINTESTINAL: Denies changes in appetite, nausea, vomiting, diarrhea or constipation. GENITOURINARY: No history of frequency, urgency, hesitancy or nocturia. NEUROLOGIC: Denies history of numbness, tingling, tremor or weakness. PSYCHIATRIC: No history of panic, anxiety or depression. ENDOCRINE: No history of heat or cold intolerance, polyuria or polydipsia. EXTREMITIES: She complains of right hip pain and right wrist pain. PHYSICAL EXAMINATION: VITALS: Within normal limits and are stable. GENERAL: No apparent distress. Alert and oriented. HEENT: Normal cephalic atraumatic, external auditory canals are patent EYES: Extraocular muscles are intact, pupils are equally round and reactive to light and accommodation MUSCULOSKELETAL: Well developed, well nourished, good range of motion ENDOCRINE: No thyromegaly was palpated LYMPHATICS: No cervical chain or axillary nodes were noted HEMATOPOIETIC: No bruising NECK: Supple, no JVD, no thyromegaly was noted. LUNGS: Clear to auscultation in all lung arce without rhonchi or wheezing. HEART: RRR, S1, S2 present. Peripheral pulses intact, no obvious murmurs were noted. ABDOMEN: Soft, nontender. Positive bowel sounds no organomegaly, normal bowel sounds. EXTREMITIES: Without any cyanosis, clubbing, or edema. Pedal pulses intact, Homans sign is negative. NEUROLOGIC: Normal speech, normal tone. A and O x3, moves all extremities, no obvious focal deficits. PSYCHIATRIC: Normal affect, normal mood. Stable. SKIN: No ulcerations or rashes, good skin turgor, no jaundice. VASCULAR: Good capillary refill, neurovascular bundle appears to be intact. LABORATORY DATA: Pending. Pelvis CT was negative. ASSESSMENT AND PLAN: Fall with intractable pain and inability to walk. The patient will be admitted. We will order physical therapy, occupational therapy, home meds, deep vein thrombosis prophylaxis. Full code. Wound care. [facility]. ARLIN SALAZAR DO DR: KHANH/natalee JOB#: [id number] / [id number]
[2020-10-18 14:39] VITALS: BP 180/82
[2020-10-18] MEDS ORDERED: HYDROcodone/APAP 5/325MG 1 TAB TABLET PO PRN (14:45)
[2020-10-18] MEDS ORDERED: DOCUSATE SODIUM 100 MG CAPSULE. PO PRN (14:45)
[2020-10-18] MEDS: LOSARTAN POTASSIUM 50 MG TABLET. PO SCH (14:58)
[2020-10-18] MEDS: hydroCHLOROthiazide 25 MG TABLET PO SCH (14:59)
[2020-10-18] MEDS: POTASSIUM CHLORIDE 10 MEQ TABLET.ER. PO SCH (14:59)
[2020-10-18] MEDS ORDERED: BUDE10.2 IH (15:53)
[2020-10-18] MEDS ORDERED: NON FORMULARY ITEM (Budesonide/Formoterol Fumarate (Symbicort 160-4.5 Mcg Inhaler) 2 PUFF) IH PRN (16:00)
[2020-10-18] MEDS: SMZ/TMP 800/160MG TABLET. PO SCH ×2 (16:55→20:37)
[2020-10-18] MEDS: CEPHALEXIN 250 MG CAPSULE. PO SCH ×2 (16:56→20:37)
[2020-10-18] MEDS: ALBUTEROL SULFATE 2.5 MG/3 ML NEBU. NEB SCH (18:00)
[2020-10-18] MEDS ORDERED: ONDANSETRON ODT 4 MG TAB.RAPDIS. PO PRN (19:00)
[2020-10-18 19:15] VITALS: BP 188/93
[2020-10-18] MEDS ORDERED: LABETALOL 20 MG/4 ML DISP.SYRIN. IVP PRN (19:45)
[2020-10-18] MEDS: BUDESONIDE 0.5 MG/2 ML NEBU. NEB SCH (20:00)
[2020-10-18 23:13] VITALS: BP 132/62
[2020-10-19 03:13] VITALS: BP 123/69
[2020-10-19] MEDS: ALBUTEROL SULFATE 2.5 MG/3 ML NEBU. NEB SCH ×3 (06:00→13:02)
[2020-10-19 07:05] VITALS: BP 150/82
[2020-10-19] MEDS: BUDESONIDE 0.5 MG/2 ML NEBU. NEB SCH (08:00)
[2020-10-19] MEDS: SMZ/TMP 800/160MG TABLET. PO SCH (08:47)
[2020-10-19] MEDS: CEPHALEXIN 250 MG CAPSULE. PO SCH ×2 (08:47→14:08)
[2020-10-19] MEDS: hydroCHLOROthiazide 25 MG TABLET PO SCH (08:47)
[2020-10-19] MEDS: POTASSIUM CHLORIDE 10 MEQ TABLET.ER. PO SCH (08:48)
[2020-10-19] MEDS ORDERED: ATORVASTATIN CALCIUM 40 MG TABLET. PO SCH (09:00)
[2020-10-19] MEDS: LOSARTAN POTASSIUM 50 MG TABLET. PO SCH (09:10)
--- NOTE | 2020-10-19 09:39 | NUR ---
SW following. Discussed with RN, pt from home with son and granddaughter, room air, regular diet. PT/OT ordered. Dr. Trivedi saw pt - stated pt can go home. Dr. Cabrera awaiting PT/OT eval. SERENA will continue to follow. Addendum: 10/19/20 at 1300 by JACKSON LYONS OT recommending home independent. Discharge order for home with home health. SERENA met with pt to discuss home health (no isolation precautions at the time), pt declining home health because she is going back to work on Thursday. SERENA notified pt to call her PCP if she changes her mind. RN notified. Pt's son coming to collect her. No further SW needs.
--- NOTE | 2020-10-19 09:52 | CONS ---
DATE OF CONSULTATION: 10/19/2020 ATTENDING PHYSICIAN: Janette Smith DO. REASON FOR CONSULTATION: The patient was seen at the request of Dr. Smith for rehab evaluation. 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 The patient apparently lost balance and fell at home. She struck her head, also struck her right wrist and right hip. The patient was seen in the Emergency Room on 04/14, the fall was on 04/13. The patient had radiological studies, which failed to reveal any acute abnormality except degenerative changes in her knees and right hip. The patient feels somewhat better today. The patient with known chronic obstructive pulmonary disease, hypertension, hyperlipidemia, hysterectomy, and hernia repair. FAMILY HISTORY: Diabetes mellitus. ALLERGIES: She is not known allergic to any medications. She has stairs to manage. She lives with her son. She had exposure to COVID and tested positive in August, but gone through quarantine, no treatment. PHYSICAL EXAMINATION: Today revealed a middle-aged female. She is alert, oriented to time, place, person and circumstance and follows commands appropriately, moves all 4 extremities voluntarily, where she had 4+/5 grade muscle strength. She is protecting her left shoulder and right hip to some extent. The patient had pain on active left shoulder abduction. She had tenderness to palpation over anterior aspect of left shoulder. She had some pain on external rotation of her right hip joint. No tenderness to palpation around right hip abductor tendon, trochanteric bursa or over lumbar spine area, and she had painful range of motion of both knee joints. She had crepitus on range of motion of her knee joints without any knee joint effusion. She had full range of motion at left shoulder. She had equal perception of touch and pinprick sensation bilaterally. Deep tendon reflexes are 2+ and symmetrical, and she is independent with bed mobility, transfers, and walking without any limping. ASSESSMENT: The patient with recent fall and pain in right hip and left shoulder, with radiological evidence of degenerative changes of right hip joint and both knees and tendinitis of left shoulder. RECOMMENDATIONS: To start her on prednisone as an anti-inflammatory medication as her creatinine is 1.1. I have instructed a home program of physical modalities and Codman's exercise to her left shoulder and advised her to use a cane or a walker while up walking if the pain makes her difficult to walk. Home with outpatient followup, to consider right hip joint injection under fluoroscopy with steroids if the pain persists. Dr. Smith and Cabrera appreciate asking me to participate in the care of this interesting patient. I will be glad to see her for followup with you on as needed basis. RAMIRO GAMBOA MD DR: TOSHIA/natalee JOB#: [id number] / [id number]
[2020-10-19] MEDS ORDERED: predniSONE 10 MG TABLET PO SCH (10:00)
[2020-10-19 10:20] VITALS: BP 139/71
[2020-10-19] MEDS ORDERED: PRED-220 PO (11:28)
--- NOTE | 2020-10-19 11:31 | SNU/HH DC ---
DISCHARGE WITH HOME HEALTH DISCHARGE INFORMATION: Discharge Date: Oct 19, 2020 Final Diagnosis: Problems Medical Problems: (1) Hip pain, right Status: Acute Condition on Discharge: Stable HOME HEALTH: Face to Face: I certify this patient is under my care and that I, or a nurse practitioner or physician's electrician station assistant working with me, had a face to face encounter that meets the physician face to face encounter requirements with this patient on []. Medical Complications: Falls RN For Eval/Treatment: Yes Physical Therapy For: Evalulation/Treatment Occupational Therapy For: Evaluation/Treatment Speech Language Pathology For: Swallow Cognition Pt Meets Homebound Status: Poor coordination w/ amb., Frequent falls w/ injury, Limited distance walking POST DISCHARGE ORDERS: DIET AFTER DISCHARGE: ADA FOLLOW-UP: Follow up with: PCP within 2 weeks of discharge Follow Up With: Pulmonology as needed DC TO SNF LABS: CBC, CMP CERTIFICATION STATEMENT: Certification Statement: Certification Statement: Based on the above finding, I certify that this patient is confined to the home and needs intermittent [facility] care, physical therapy and/or speech therapy, or continues to need occupational therapy.~ This patient is under my care, and I have initiated the establishment of the plan of care.~ This patient will be followed by myself or a community physician who will periodically review the plan of care. Home Meds Active Scripts Sulfamethoxazole/Trimethoprim (BACTRIM DS TABLET) 1 Each Tablet, 1 TAB PO BID for infection for 10 Days, #20 TAB Prov:MARCOS STEVENSON DO 10/15/20 Cephalexin (CEPHALEXIN) 500 Mg Capsule, 1 CAP PO QID for 10 Days, #40 CAP Prov:MARCOS STEVENSON DO 10/15/20 Reported Medications Budesonide/Formoterol Fumarate (SYMBICORT 160-4.5 MCG INHALER) 10.2 Gm Hfa.aer.ad, 2 PUFF IH BID PRN for SEE COMMENTS, #10.6 GM 3 Refills 10/18/20 Atorvastatin Calcium (ATORVASTATIN CALCIUM) 40 Mg Tablet, 1 TAB PO DAILY for high cholesterol, #30 TAB 5 Refills 10/18/20 Hydrochlorothiazide (HYDROCHLOROTHIAZIDE TABLET) 50 Mg Tablet, 50 MG PO DAILY for DIURETIC, TAB 0 Refills 10/18/20 Losartan Potassium (LOSARTAN POTASSIUM) 100 Mg Tablet, 100 MG PO DAILY for HYPERTENSION, TAB 1/14/21 Potassium Chloride (KLOR-CON 10) 10 Meq Tablet.er, 10 MEQ PO DAILY for low potassium, TAB 10/18/20 Amlodipine Besylate (AMLODIPINE BESYLATE) 5 Mg Tablet, 5 MG PO DAILY for HTN, TAB 10/18/20 Discontinued Reported Medications Budesonide/Formoterol Fumarate (SYMBICORT 80-4.5 MCG INHALER) 10.2 Gm Hfa.aer.ad, 2 PUFF IH BID PRN for SEE COMMENTS, #10.2 GM 5 Refills 10/18/20 EDWIN MENDEZ MD Oct 19, 2020 11:31
--- NOTE | 2020-10-19 11:33 | SNU/HH DC ---
DISCHARGE WITH HOME HEALTH DISCHARGE INFORMATION: Discharge Date: Oct 19, 2020 Final Diagnosis: Problems Medical Problems: (1) Hip pain, right Status: Acute Condition on Discharge: Stable HOME HEALTH: Face to Face: I certify this patient is under my care and that I, or a nurse practitioner or physician's senior assistant manager working with me, had a face to face encounter that meets the physician face to face encounter requirements with this patient on []. Medical Complications: Falls Senior Living For: Assess Cardiopulm Status, Assess & Educate Safety, Medication Management RN For Eval/Treatment: Yes Physical Therapy For: Evalulation/Treatment Occupational Therapy For: Evaluation/Treatment Pt Meets Homebound Status: Poor coordination w/ amb., Frequent falls w/ injury, Limited distance walking, Unable to negotiate home POST DISCHARGE ORDERS: DIET AFTER DISCHARGE: ADA FOLLOW-UP: Follow up with: PCP within 2 weeks of discharge Follow Up With: Pulmonology as needed DC TO SNF LABS: CBC, CMP CERTIFICATION STATEMENT: Certification Statement: Certification Statement: Based on the above finding, I certify that this patient is confined to the home and needs intermittent shelter care, physical therapy and/or speech therapy, or continues to need occupational therapy.~ This patient is under my care, and I have initiated the establishment of the plan of care.~ This patient will be followed by myself or a community physician who will periodically review the plan of care. Home Meds Active Scripts Prednisone (PREDNISONE ) 10 Mg Tablet, 10 MG PO DAILY for hip pain for 14 Days, #14 TAB Prov:EDWIN MENDEZ MD 10/19/20 Reported Medications Atorvastatin Calcium (ATORVASTATIN CALCIUM) 40 Mg Tablet, 1 TAB PO DAILY for high cholesterol, #30 TAB 5 Refills 10/18/20 Losartan Potassium (LOSARTAN POTASSIUM) 100 Mg Tablet, 100 MG PO DAILY for HYPERTENSION, TAB 10/18/20 Potassium Chloride (KLOR-CON 10) 10 Meq Tablet.er, 10 MEQ PO DAILY for low potassium, TAB 10/18/20 Discontinued Reported Medications Budesonide/Formoterol Fumarate (SYMBICORT 160-4.5 MCG INHALER) 10.2 Gm Hfa.aer.ad, 2 PUFF IH BID PRN for SEE COMMENTS, #10.6 GM 3 Refills 10/18/20 Hydrochlorothiazide (HYDROCHLOROTHIAZIDE TABLET) 50 Mg Tablet, 50 MG PO DAILY for DIURETIC, TAB 0 Refills 10/18/20 Amlodipine Besylate (AMLODIPINE BESYLATE) 5 Mg Tablet, 5 MG PO DAILY for HTN, TAB 10/18/20 Budesonide/Formoterol Fumarate (SYMBICORT 80-4.5 MCG INHALER) 10.2 Gm Hfa.aer.ad, 2 PUFF IH BID PRN for SEE COMMENTS, #10.2 GM 5 Refills 10/18/20 Discontinued Scripts Sulfamethoxazole/Trimethoprim (BACTRIM DS TABLET) 1 Each Tablet, 1 TAB PO BID for infection for 10 Days, #20 TAB Prov:MARCOS STEVENSON DO 10/15/20 Cephalexin (CEPHALEXIN) 500 Mg Capsule, 1 CAP PO QID for 10 Days, #40 CAP Prov:MARCOS STEVENSON DO 10/15/20 EDWIN MENDEZ MD Oct 19, 2020 11:33
--- NOTE | 2020-10-19 14:40 | NUR ---
Patient discharge home today with Home Health recommendation but patient refused Home health. Pt left the room by wheelchair and this nurse accompanied her to the car. Patient is stable, IV removed, and discharge paperwork given to patient. Patient verbalized understanding of followup and discharge instruction.
--- NOTE | 2020-10-21 20:52 | PDOC3 ---
[facility]-Discharge Summary Date of Admission: Date of Admission: Oct 17, 2020 Date of Discharge: Date of Discharge: Oct 19, 2020 Discharge Diagnosis: Discharge Diagnosis: Fall with intractable pain Hospital Course: Hospital Course: pleasant elderly female who fell. She struck her head. She also struck her right wrist and right hip. Rates her pain at 7/10. It occurred actually 3 days ago. She tried increasing her home meds, but that did not work. She was actually evaluated in the ER 3 days ago and her workup was negative, so she was sent home, but she states she just cannot walk. I discussed the case with ER physician. We are going to admit the patient and do some therapy and give her some pain meds, do some more imaging, suspect she might need to go to senior living. Patient was seen by Dr Trivedi and she was sent home with for PT and prednisone taper. OUtpatient management for her hip pain was arranged for possible injection with Dr trivedi. Rest of her hospital course was uneventful. Activity: Activity: Resume previous activity Medications: Home Meds Active Scripts Prednisone (PREDNISONE ) 10 Mg Tablet, 10 MG PO DAILY for hip pain for 14 Days, #14 TAB Prov:EDWIN MENDEZ MD 10/19/20 Reported Medications Atorvastatin Calcium (ATORVASTATIN CALCIUM) 40 Mg Tablet, 1 TAB PO DAILY for high cholesterol, #30 TAB 5 Refills 10/18/20 Losartan Potassium (LOSARTAN POTASSIUM) 100 Mg Tablet, 100 MG PO DAILY for HYPERTENSION, TAB 10/18/20 Potassium Chloride (KLOR-CON 10) 10 Meq Tablet.er, 10 MEQ PO DAILY for low potassium, TAB 10/18/20 Discontinued Reported Medications Budesonide/Formoterol Fumarate (SYMBICORT 160-4.5 MCG INHALER) 10.2 Gm Hfa.aer.ad, 2 PUFF IH BID PRN for SEE COMMENTS, #10.6 GM 3 Refills 10/18/20 Hydrochlorothiazide (HYDROCHLOROTHIAZIDE TABLET) 50 Mg Tablet, 50 MG PO DAILY for DIURETIC, TAB 0 Refills 10/18/20 Amlodipine Besylate (AMLODIPINE BESYLATE) 5 Mg Tablet, 5 MG PO DAILY for HTN, TAB 10/18/20 Budesonide/Formoterol Fumarate (SYMBICORT 80-4.5 MCG INHALER) 10.2 Gm Hfa.aer.ad, 2 PUFF IH BID PRN for SEE COMMENTS, #10.2 GM 5 Refills 10/18/20 Discontinued Scripts Sulfamethoxazole/Trimethoprim (BACTRIM DS TABLET) 1 Each Tablet, 1 TAB PO BID for infection for 10 Days, #20 TAB Prov:MARCOS STEVENSON DO 10/15/20 Cephalexin (CEPHALEXIN) 500 Mg Capsule, 1 CAP PO QID for 10 Days, #40 CAP Prov:MARCOS STEVENSON DO 10/15/20 Scheduled Atorvastatin Calcium (Atorvastatin Calcium), 1 TAB PO DAILY, (Reported) Losartan Potassium (Losartan Potassium), 100 MG PO DAILY, (Reported) Potassium Chloride (Klor-Con 10), 10 MEQ PO DAILY, (Reported) Prednisone (Prednisone ), 10 MG PO DAILY Discontinued Medications Amlodipine Besylate (Amlodipine Besylate), 5 MG PO DAILY, (Reported) Budesonide/Formoterol Fumarate (Symbicort 80-4.5 Mcg Inhaler), 2 PUFF IH BID PRN for SEE COMMENTS, (Reported) Budesonide/Formoterol Fumarate (Symbicort 160-4.5 Mcg Inhaler), 2 PUFF IH BID PRN for SEE COMMENTS, (Reported) Cephalexin (Cephalexin), 1 CAP PO QID Hydrochlorothiazide (Hydrochlorothiazide Tablet), 50 MG PO DAILY, (Reported) Sulfamethoxazole/Trimethoprim (Bactrim Ds Tablet), 1 TAB PO BID Total Time: Total Time: Total time spent was 35 minutes in preparing scripts, discharge planning with SW and RN, and preparing this discharge summary. Patient seen and examined on day of discharge. Justicifation of Admission Dx: Justifications for Admission: Justification of Admission Dx: Yes (FALL with RIGHT HIP PAIN) EDWIN MENDEZ MD Oct 21, 2020 20:52
== END 2020-10-19 14:44 | disposition home or self-care (01) ==
LOC: ER 07:32 → 4 NORTH 10:55
PROVIDERS: ADMIT Internal Medicine; ATTEND Internal Medicine
DX: M25.561 Pain in right knee (principal); M25.531 Pain in right wrist; M25.551 Pain in right hip; I10 Essential (primary) hypertension; E78.00 Pure hypercholesterolemia, unspecified; E78.5 Hyperlipidemia, unspecified; J44.9 Chronic obstructive pulmonary disease, unspecified; M16.11 Unilateral primary osteoarthritis, right hip; M17.11 Unilateral primary osteoarthritis, right knee; Z90.710 Acquired absence of both cervix and uterus; Z98.890 Other specified postprocedural states; W01.0XXA Fall on same level from slipping, tripping and stumbling without subsequent striking against object, initial encounter; Y92.009 Unspecified place in unspecified non-institutional (private) residence as the place of occurrence of the external cause; Y93.89 Activity, other specified; Y99.8 Other external cause status
CPT/HCPCS: 72192; 73502; 73562; 82962; 94640; 94760; 96374; 97110; 97116; 97162; 97165; 97535; 99285; G0378; J3490; J7512; J7613; J7626; G0379